=== PATIENT | female | born 1995 | race Caucasian/White ===

== ENCOUNTER 2020-12-02 14:23 | Emergency (ER) | payer SELFPAY ==
[~2020-12-02] VITALS: Ht 162.6 cm; Wt 73.0 kg
[2020-12-02 14:27] VITALS: BP 124/86
[2020-12-02] MEDS ORDERED: ACETAMINOPHEN 325MG TABLET PO ONE (15:00)
[2020-12-02] MEDS ORDERED: TETANUS, DIPHTHERIA, PERTUSSIS VAC/PF 0.5ML (>7YR OLD) IM ONE (15:00)
[2020-12-02] MEDS ORDERED: IBUP-2029 MT (15:56)
== END 2020-12-02 16:28 | disposition home or self-care (01) ==
LOC: ER 15:06
DX: S80.11XA Contusion of right lower leg, initial encounter (principal); S09.8XXA Other specified injuries of head, initial encounter; S50.812A Abrasion of left forearm, initial encounter; S80.211A Abrasion, right knee, initial encounter; V49.59XA Passenger injured in collision with other motor vehicles in traffic accident, initial encounter; Y93.89 Activity, other specified; Y92.488 Other paved roadways as the place of occurrence of the external cause; Z23 Encounter for immunization; R03.0 Elevated blood-pressure reading, without diagnosis of hypertension
CPT/HCPCS: 73130; 73562; 73590; 73610; 73630; 81025; 90471; 90715; 99284

== ENCOUNTER 2024-02-06 19:00 | Emergency (ER) | payer OTHER ==
[~2024-02-06] VITALS: Ht 165.1 cm; Wt 84.0 kg
[~2024-02-06 19:00] MED LIST: IBUP-2029 MT
[2024-02-06 19:07] VITALS: BP 122/84; PULSE 77; RESP 18; TEMP 98.6; O2SAT 97
[2024-02-06] MEDS ORDERED: KETOROLAC 15MG/ML VIAL IM ONE (20:00)
== END 2024-02-07 00:10 | disposition left against medical advice (07) ==
LOC: ER 19:00
DX: M25.532 Pain in left wrist (principal); M25.531 Pain in right wrist; V98.8XXA Other specified transport accidents, initial encounter; Y93.89 Activity, other specified; Y92.89 Other specified places as the place of occurrence of the external cause; Y99.8 Other external cause status
CPT/HCPCS: 99281